=== PATIENT | male | born 1950 | race Caucasian/White ===

== ENCOUNTER 2019-12-31 08:23 | Outpatient (CLI) | payer BC, SELFPAY ==
[2019-12-31 09:06] LABS: Alanine Aminotransferase 21 U/L (4-50); Albumin Level 4.2 g/dL (3.5-5.1); Alkaline Phosphatase 66 U/L (38-126); Aspartate Amino Transferase 29 U/L (17-59); Bilirubin,Total 0.8 mg/dL (0.2-1.3); Blood Urea Nitrogen 15 mg/dL (9-20); Calcium 9.4 mg/dL (8.4-10.2); Carbon Dioxide 30 mmol/L (22-30); Chloride 104 mmol/L (98-107); Cholesterol 167 mg/dL (0-200); Estimated Glomerular Filt Rate > 60; Glucose 73 mg/dL (75-110); HDL Direct 64 mg/dL; Potassium 4.4 mmol/L (3.4-5.0); Sodium 139 mmol/L (137-145); Triglycerides 64 mg/dL (<150)
[2019-12-31 09:17] LABS: LDL Cholesterol Direct 87 mg/dL
== END 2019-12-31 08:24 | disposition home or self-care (01) ==
PROVIDERS: PCP Emergency Medicine; Visit Provider Emergency Medicine
DX: E78.5 Hyperlipidemia, unspecified (principal); Z12.5 Encounter for screening for malignant neoplasm of prostate
CPT/HCPCS: 36415; 80053; 80061; 84153

== ENCOUNTER 2020-03-29 07:58 | Outpatient (CLI) | payer BC, SELFPAY ==
[2020-03-29 08:51] LABS: Alanine Aminotransferase 23 U/L (4-50); Alkaline Phosphatase 66 U/L (38-126); Anion Gap 4 mmol/L (8-16); Aspartate Amino Transferase 30 U/L (17-59); Bilirubin,Total 0.8 mg/dL (0.2-1.3); Blood Urea Nitrogen 15 mg/dL (9-20); Calcium 9.2 mg/dL (8.4-10.2); Carbon Dioxide 29 mmol/L (22-30); Chloride 105 mmol/L (98-107); Estimated Glomerular Filt Rate > 60; Glucose 94 mg/dL (75-110); Potassium 4.3 mmol/L (3.4-5.0); Sodium 138 mmol/L (137-145)
[2020-03-29 09:22] LABS: Prostate Specific Antigen 0.8 ng/mL (< OR = 4.0)
== END 2020-03-29 07:59 | disposition home or self-care (01) ==
PROVIDERS: PCP Emergency Medicine; Visit Provider Emergency Medicine
DX: E78.5 Hyperlipidemia, unspecified (principal); Z12.5 Encounter for screening for malignant neoplasm of prostate
CPT/HCPCS: 36415; 80053; 84153

== ENCOUNTER 2020-07-17 14:47 | Emergency (ER) | payer BC, SELFPAY ==
--- NOTE | ~2020-07-17 | XR_ITS ---
EXAMINATION: XR hand RT min 3V DATE: 07/17/2020 15:21 INDICATION: Table saw incident with abrasion to the second and third distal phalanges TECHNIQUE: Posteroanterior, oblique and lateral views of the right hand were obtained. COMPARISON: None. FINDINGS: Irregular skin contour consistent with skin laceration is at the palmar/radial aspects of the right s econd and third distal phalanges. No associated fracture or cortical defects. Old healed fifth metaca rpal diaphyseal fracture. Polyarticular osteoarthritis, severe at the triscaphe, first carpal metacar pal and third metacarpophalangeal joints, moderate severity at the wrist, first and third metacarpoph alangeal, first interphalangeal and all of the interphalangeal joints with the exception of the fourt h and fifth distal interphalangeal joints and mild at the remaining interphalangeal, metacarpophalang eal joints and the midcarpal joint. Comment associated subchondral cystic changes at the distal pole of the scaphoid and at the base of the first metacarpal. IMPRESSION: 1. Lacerations at the second and third distal phalanges without underlying acute osseous abnormality. 2. 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 Reviewed, dictated and finalized at location A. GY CONSERVATION SPECIALIST IMPRESSION: 1. Lacerations at the second and third distal phalanges without underlying acut e osseous abnormality. 2. 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
[2020-07-17 14:49] VITALS: BP 113/91; PULSE 110; RESP 20; TEMP 36.3; O2SAT 100
--- NOTE | 2020-07-17 15:13 | ED.GENADULT ---
HPI - General Adult General Chief complaint: Wound/Laceration <Bernardo Wheeler PA-C - Last Filed: 07/17/20 16:19> Stated complaint: FINGER LAC <Bernardo Wheeler PA-C - Last Filed: 07/17/20 16:19> Time Seen by Provider: 07/17/20 15:06 <SHERRI Olivas Last Filed: 07/17/20 16:19> Source: patient <SHERRI Olivas Last Filed: 07/17/20 16:19> Mode of arrival: ambulatory <Bernardo Wheeler PA-C - Last Filed: 07/17/20 16:19> Limitations: no limitations <Bernardo Wheeler PA-C - Last Filed: 07/17/20 16:19> History of Present Illness HPI narrative: Patient 70-year-old male who presents to emergency department with table saw injuries to the second third and fourth phalanxes of the right hand palmar aspect distal phalanxes notes moderate aching pain worse with touch and activity denies radicular symptoms or paresthesias notes that his tetanus is up-to-date injury occurred just prior to arrival <Bernardo Wheeler PA-C - Last Filed: 07/17/20 16:19> Related Data Home medications: Home Medications Medication Instructions Recorded Confirmed biotin 800 mcg tablet 800 mcg PO DAILY 07/17/19 multivitamin 1 tablet PO DAILY 07/17/19 loratadine 10 mg tablet 10 mg PO .PRN tablet 01/16/20 <Bernardo Wheeler PA-C - Last Filed: 07/17/20 16:19> Allergies/adverse reactions: Allergies Allergy/AdvReac Type Severity Reaction Status Date / Time sulfamethoxazole Allergy Intermediate Rash Verified 07/17/20 14:51 <Bernardo Wheeler PA-C - Last Filed: 07/17/20 16:19> Review of Systems Review of Systems: All systems reviewed & are unremarkable except as noted in HPI and below <Bernardo Wheeler PA-C - Last Filed: 07/17/20 16:19> PMFSH Past Medical History Medical History: Medical History (Updated 07/17/20 @ 16:18 by Bernardo Wheeler PA-C) DJD (degenerative joint disease) GERD (gastroesophageal reflux disease) <Bernardo Wheeler PA-C - Last Filed: 07/17/20 16:19> Family History Family History: Family History Mother Family history of cardiovascular disease Family history of arthritis Father Family history of lung disease, Onset Age: 82 Family history of renal failure, Onset Age: 82 <SHERRI Olivas Last Filed: 07/17/20 16:19> Social History Social History: Social History Alcohol intake: current <Bernardo Wheeler PA-C - Last Filed: 07/17/20 16:19> Exam Narrative: Exam Narrative: GENERAL: Well-appearing, well-nourished, and in no acute distress. HEAD: Normocephalic, atraumatic. EYES: PERRLA and EOMI. ENT: Nares clear, no rhinorrhea or epistaxis. Mucous membranes moist. EXTREMITIES: Normal range of motion. No edema. SKIN: Warm, dry, no rash. Superficial 1 cm in diameter skin avulsion of the distal phalanx palmar aspect right second digit patient with half centimeter superficial skin avulsion of the distal phalanx of the ring finger palmar aspect patient with 2 cm flap laceration distal phalanx middle digit palmar aspect NEURO: No focal deficits. Alert and oriented x3. Neurovascularly intact PSYCH: Normal mood and affect. <SHERRI Olivas Last Filed: 07/17/20 16:19> Course Course Emergency Course: Patient had closure of the wound in the emergency department will follow with primary care felt appropriate for outpatient reevaluation. <Bernardo Wheeler PA-C - Last Filed: 07/17/20 16:19> Vital Signs Vital signs: Vital Signs Temperature 97.3 F L 07/17/20 14:49 Pulse Rate 110 H 07/17/20 14:49 Respiratory Rate 20 07/17/20 14:49 Blood Pressure 113/91 H 07/17/20 14:49 Pulse Oximetry 100 07/17/20 14:49 Temperature 97.3 F L 07/17/20 14:49 Pulse Rate 110 H 07/17/20 14:49 Respiratory Rate 20 07/17/20 14:49 Blood Pressure 113/91 H 07/17/20 14:49 Pulse Oximet
== END 2020-07-17 16:31 | disposition home or self-care (01) ==
PROVIDERS: Emergency Provider General Practice; PCP Emergency Medicine
DX: S61.210A Laceration without foreign body of right index finger without damage to nail, initial encounter (principal); S61.212A Laceration without foreign body of right middle finger without damage to nail, initial encounter; S61.204A Unspecified open wound of right ring finger without damage to nail, initial encounter; K21.9 Gastro-esophageal reflux disease without esophagitis; M19.041 Primary osteoarthritis, right hand; W31.2XXA Contact with powered woodworking and forming machines, initial encounter
CPT/HCPCS: 12001; 73130; 99283

== ENCOUNTER 2021-05-26 07:22 | Outpatient (CLI) | payer BC, SELFPAY ==
[2021-05-26 08:24] LABS: Alanine Aminotransferase 29 U/L (4-50); Albumin Level 4.4 g/dL (3.5-5.1); Alkaline Phosphatase 75 U/L (38-126); Anion Gap 4 mmol/L (8-16); Aspartate Amino Transferase 36 U/L (17-59); Bilirubin,Total 0.9 mg/dL (0.2-1.3); Blood Urea Nitrogen 16 mg/dL (9-20); Calcium 9.5 mg/dL (8.4-10.2); Carbon Dioxide 32 mmol/L (22-30); Chloride 105 mmol/L (98-107); Estimated Glomerular Filt Rate > 60; Glucose 93 mg/dL (65-110); Potassium 4.6 mmol/L (3.4-5.0); Sodium 141 mmol/L (137-145)
[2021-05-26 08:55] LABS: Prostate Specific Antigen 1.1 ng/mL (< OR = 4.0)
== END 2021-05-26 07:23 | disposition home or self-care (01) ==
PROVIDERS: PCP Emergency Medicine; Visit Provider Emergency Medicine
DX: Z13.6 Encounter for screening for cardiovascular disorders (principal); Z12.5 Encounter for screening for malignant neoplasm of prostate
CPT/HCPCS: 36415; 80053; 84153

== ENCOUNTER 2021-07-19 01:56 | Day surgery (SDC) | payer BC, SELFPAY ==
[2021-07-05 12:36] VITALS: BMI 21.3
--- NOTE | 2021-07-19 08:10 | P.PNAN_ITS ---
Anes - Initial Pre Proc Eval Procedure: Operation Date: 07/19/21 09:30 Proposed Procedures p Esophagogastroduodenoscopy - Mendez Freed MD Date/Time: 07/19/21 08:10 Surgeon: Mendez Freed MD Pre Op Diagnosis: GERD Patient Data Age: 71 Gender: M Height: 1.73 m Weight: 63.6 kg Allergies Allergy/AdvReac Type Severity Reaction Status Date / Time sulfamethoxazole Allergy Intermediate Rash Verified 07/19/21 08:28 Home Medications Medication Instructions Recorded Confirmed Type biotin 800 mcg tablet 800 mcg PO DAILY 07/17/19 07/19/21 History multivitamin 1 tablet PO DAILY 07/17/19 07/19/21 History epinephrine 0.3 mg/0.3 mL 0.3 mg IM ONCE #2 each 01/16/20 07/19/21 Rx injection, auto-injector loratadine 10 mg tablet 10 mg PO .PRN tablet 01/16/20 07/19/21 History bimatoprost 0.01 % eye drops 1 drp EACH EYE DAILY 12/28/20 07/19/21 History omeprazole 20 mg capsule,delayed See Rx Instructions .ROUTE 02/02/21 07/19/21 Rx release .COMPLEX #90 cap Patient hx anesthesia problems: none Family hx anesthesia problems: none Results Review: All pre-operative results and documents have been reviewed as part of the pre-operative evaluation. [facility] Past Medical History Medical History (Updated 07/19/21 @ 08:10 by Vicente Knight DO) DJD (degenerative joint disease) GERD (gastroesophageal reflux disease) Glaucoma Family History Family History Mother Family history of cardiovascular disease Family history of arthritis Father Family history of lung disease, Onset Age: 82 Family history of renal failure, Onset Age: 82 Social History Social History Smoking status: Current every day smoker Tobacco type: cigars Alcohol intake: current Drinks per week: 7 Living arrangements: alone Spiritual care concerns: No Anes - Eval Final PreProcedure Day of Procedure 07/19/21 08:10 Patient weight: normal Heart: regular rate and rhythm Lungs: clear to auscultation and normal air movement Airway: Mallampati scale class II Neurological: alert and oriented Last oral intake: >/= 8 hours ASA classification: III Emergent: no Anesthetic plan: proceed Anesthesia type and monitoring: general GIVS and standard monitoring Results Review: All pre-operative results and documents have been reviewed as part of the pre-operative evaluation. Informed Consent: The patient's anesthetic plan and its attendant risks and benefits were discussed with the patient/family/POA. Questions were solicited and answers provided to the satisfaction of the patient/family/POA.
[2021-07-19 08:29] VITALS: BP 123/68; PULSE 66; RESP 16; TEMP 36.3; O2SAT 100; BMI 18.8
[2021-07-19] MEDS: LACTATED RINGERS 1,000 ML 150 ML IV CONT (08:39)
--- NOTE | 2021-07-19 09:50 | PM.HPGS ---
History of Present Illness History of Present Illness Consent: Risks, benefits, and alternatives have been discussed and questions answered. Patient agrees to proceed with procedure. Chief complaint: GERD Narrative: Kenny Lee is a 71 year old male with abdominal pain and weight loss, gerd controlled with omeprazole. Last colonoscopy about 2 years ago. Review of Systems Constitutional: Constitutional: Denies headache(s) and Denies weakness Eyes: Eyes: Denies blurry vision ENT: Reports Normal hearing present, Denies headache(s) and Denies neck pain Cardiovascular: Cardiovascular: Denies chest pain and Denies dyspnea Respiratory: Respiratory: Denies dyspnea Gastrointestinal: Gastrointestinal: Reports no additional gastrointestinal complaints Genitourinary: Genitourinary: Denies dysuria Musculoskeletal: Musculoskeletal: Denies neck pain Integumentary/Breasts: Skin/Breast: Denies dry skin Neurologic: Reports Normal hearing present, Denies headache(s) and Denies weakness Psychiatric: Psychiatric: Denies anxiety Endocrine: Endocrine: Denies change in body appearance Hematologic/Lymphatic: Hematologic/Lymphatic: Denies easy bleeding Allergic/Immunologic: Allergic/Immunologic: Denies urticaria [facility]LY [facility] Past Medical History Medical History (Updated 07/19/21 @ 08:10 by Vicente Knight DO) DJD (degenerative joint disease) GERD (gastroesophageal reflux disease) Glaucoma Family History Family History Mother Family history of cardiovascular disease Family history of arthritis Father Family history of lung disease, Onset Age: 82 Family history of renal failure, Onset Age: 82 Social History Social History Smoking status: Current every day smoker Tobacco type: cigars Alcohol intake: current Drinks per week: 7 Living arrangements: alone Spiritual care concerns: No Meds Home Medications and Allergies Home Medications Medication Instructions Recorded Confirmed Type biotin 800 mcg tablet 800 mcg PO DAILY 07/17/19 07/19/21 History multivitamin 1 tablet PO DAILY 07/17/19 07/19/21 History epinephrine 0.3 mg/0.3 mL 0.3 mg IM ONCE #2 each 01/16/20 07/19/21 Rx injection, auto-injector loratadine 10 mg tablet 10 mg PO .PRN tablet 01/16/20 07/19/21 History bimatoprost 0.01 % eye drops 1 drp EACH EYE DAILY 12/28/20 07/19/21 History omeprazole 20 mg capsule,delayed See Rx Instructions .ROUTE 02/02/21 07/19/21 Rx release .COMPLEX #90 cap Allergies Allergy/AdvReac Type Severity Reaction Status Date / Time sulfamethoxazole Allergy Intermediate Rash Verified 07/19/21 08:28 Vital Signs Vital Signs - 24 hr 07/19/21 08:29 Temperature 97.4 F L Pulse Rate 66 Respiratory Rate 16 Blood Pressure 123/68 Pulse Oximetry 100 Exam Const: General: comfortable and no acute distress HENMT: General nose exam: Normal nares present Eyes: General: appearance normal, both eyes and all related structures Neck: Neck: no JVD Resp: Auscultation: clear to auscultation bilaterally Cardio: Rate: regular rate Rhythm: regular rhythm GI: Inspection: non-distended GI Palp: Yes Soft to palpation Skin: General skin exam: normal color Neuro: General: gait normal Speech: normal speech Extrem: General: normal to inspection Psych: Mental Status: mental status grossly normal Assessment and Plan Assessment and plan (1) GERD (gastroesophageal reflux disease): Qualifiers: Esophagitis presence: without esophagitis Qualified Code(s): K21.9 - Gastro-esophageal reflux disease without esophagitis Code(s): K21.9 - Gastro-esophageal reflux disease without esophagitis Status: Acute Assessment and Plan: egd with bx, on ppi (2) Weight decrease: Code(s): R63.4 - Abnormal weight loss Status: Acute Assessment and P
[2021-07-19 10:05] VITALS: BP 86/54; PULSE 54; RESP 21; O2SAT 99
[2021-07-19 10:15] VITALS: BP 103/68; PULSE 55; RESP 17; O2SAT 100
[2021-07-19 10:25] VITALS: BP 114/78; PULSE 66; RESP 17; O2SAT 100
== END 2021-07-19 10:39 | disposition home or self-care (01) ==
PROVIDERS: PCP Emergency Medicine; Visit Provider Internal Medicine Gastroenterology
PROC: 0DJ08ZZ Inspection of Upper Intestinal Tract, Via Natural or Artificial Opening Endoscopic (ICD-10-PCS; CPT 43235; principal; 2021-07-19 09:30)
DX: K21.9 Gastro-esophageal reflux disease without esophagitis (principal); R63.4 Abnormal weight loss; K29.50 Unspecified chronic gastritis without bleeding; H40.9 Unspecified glaucoma; F17.290 Nicotine dependence, other tobacco product, uncomplicated; Z68.1 Body mass index [BMI] 19.9 or less, adult
CPT/HCPCS: 43239; 88305; J2704; J7120

== ENCOUNTER 2021-07-28 09:34 | Outpatient (CLI) | payer BC, SELFPAY ==
--- NOTE | ~2021-07-28 | CT_ITS ---
EXAMINATION: CT abdomen pelvis w con INDICATION: Epigastric pain, abnormal weight loss TECHNIQUE: Computed tomographic images of the abdomen and pelvis were obtained after the administrati on of 100 cc of Omnipaque 350 intravenous contrast. The dose-length product (DLP) was 289.08 mGy-cm. Automated exposure control and iterative reconstruction technique were employed. COMPARISON: None available FINDINGS: Minimal dependent atelectasis is present in the lung bases. The heart size is normal. There is a 6 mm nodule of the left lower lobe. The gallbladder is surgically absent. There is mild enlarge ment of the common bile duct and central intrahepatic ducts which is likely due to post cholecystecto my state. The liver, spleen, pancreas, and adrenal glands are normal. The kidneys are unremarkable. N o pathologically enlarged abdominal or pelvic lymph nodes are identified. There is no free intraperit sheehan gas or evidence of bowel obstruction. A large volume of colonic stool is present. There is mode rate lumbar spondylosis. IMPRESSION: 1. No CT correlate for the patient's symptoms. 2. 6 mm nodule of the left lower lobe, likely old granulomatous disease. Follow-up CT in 6-12 months is recommended. Reviewed, dictated and finalized at location A. ITAL RECEIVING CLERK IMPRESSION: 1. No CT correlate for the patient's symptoms. 2. 6 mm nodule of the left lower lobe, likely old granulomatous disease. Follow -up CT in 6-12 months is recommended.
[2021-07-28 10:01] LABS: Estimated Glomerular Filt Rate > 60
== END 2021-07-28 09:35 | disposition home or self-care (01) ==
LOC: ANHIMG 09:36
PROVIDERS: PCP Emergency Medicine; Visit Provider Internal Medicine Gastroenterology
DX: R63.4 Abnormal weight loss (principal); R10.9 Unspecified abdominal pain; R91.1 Solitary pulmonary nodule
CPT/HCPCS: 74177; Q9967

== ENCOUNTER 2021-12-12 07:26 | Outpatient (CLI) | payer BC, SELFPAY ==
[2021-12-12 08:00] LABS: Alanine Aminotransferase 20 U/L (4-50); Albumin Level 4.2 g/dL (3.5-5.1); Alkaline Phosphatase 67 U/L (38-126); Anion Gap 5 mmol/L (8-16); Aspartate Amino Transferase 30 U/L (17-59); Bilirubin,Total 0.9 mg/dL (0.2-1.3); Blood Urea Nitrogen 14 mg/dL (9-20); Calcium 9.1 mg/dL (8.4-10.2); Carbon Dioxide 28 mmol/L (22-30); Chloride 104 mmol/L (98-107); Estimated Glomerular Filt Rate > 60; Glucose 102 mg/dL (65-110); Potassium 3.9 mmol/L (3.4-5.0); Sodium 137 mmol/L (137-145)
== END 2021-12-12 07:27 | disposition home or self-care (01) ==
LOC: ANHLAB 07:27
PROVIDERS: PCP Emergency Medicine; Visit Provider Emergency Medicine
DX: Z13.6 Encounter for screening for cardiovascular disorders (principal)
CPT/HCPCS: 36415; 80053

== ENCOUNTER 2022-01-23 08:37 | Outpatient (CLI) | payer BC, SELFPAY ==
--- NOTE | ~2022-01-23 | CT_ITS ---
EXAMINATION: CT diagnostic chest wo con DATE: 01/23/2022 09:06 INDICATION: 6 mm left lower lobe pulmonary nodule noted on 07/28/2021 CT abdomen pelvis examination TECHNIQUE: Computed tomography (CT) of the chest was performed without intravenous contrast. Automate d exposure control and iterative reconstruction technique were employed. Exam dose: 75.05 mGy-cm tot al exam DLP. COMPARISON: 07/28/2021 CT abdomen pelvis FINDINGS: Bilateral apical scarring, right greater than left. Stable 6 mm pleural-based left lower lobe pulmonary nodule with attenuation up to 150 Hounsfield unit s, most consistent with benign calcified pulmonary granuloma. This is unchanged in size since 021. No pulmonary infiltrate or consolidation or pulmonary mass lesion is noted otherwise. Normal heart size. No hilar or mediastinal mass lesion or lymphadenopathy. There is left subclavian artery as well as some coronary artery calcifications. No pericardial or pleural effusion. No suspicious osteolytic or osteoblastic lesions are noted. IMPRESSION: Stable benign left lower lobe pulmonary granuloma with interval calcification No active pulmonary disease Reviewed, dictated and finalized at Location A. Reviewed, dictated and finalized at location A. IMPRESSION: Stable benign left lower lobe pulmonary granuloma with interval ca lcification No active pulmonary disease
== END 2022-01-23 08:38 | disposition home or self-care (01) ==
LOC: ANHIMG 08:40
PROVIDERS: PCP Emergency Medicine; Visit Provider Nurse Practitioner Family
DX: R91.1 Solitary pulmonary nodule (principal)
CPT/HCPCS: 71250

== ENCOUNTER 2022-06-19 09:12 | Outpatient (CLI) | payer BC, SELFPAY ==
[2022-06-19 10:07] LABS: Alanine Aminotransferase 28 U/L (6-50); Albumin Level 4.5 g/dL (3.5-5.1); Alkaline Phosphatase 79 U/L (38-126); Anion Gap 8 mmol/L (8-16); Aspartate Amino Transferase 32 U/L (17-59); Bilirubin,Total 0.9 mg/dL (0.2-1.3); Blood Urea Nitrogen 14 mg/dL (9-20); Calcium 9.2 mg/dL (8.4-10.2); Carbon Dioxide 29 mmol/L (22-30); Chloride 102 mmol/L (98-107); Estimated Glomerular Filt Rate > 60; Glucose 90 mg/dL (65-110); Potassium 4.2 mmol/L (3.4-5.0); Sodium 139 mmol/L (137-145)
[2022-06-19 10:38] LABS: Prostate Specific Antigen 1.1 ng/mL (< OR = 4.0)
== END 2022-06-19 09:13 | disposition home or self-care (01) ==
LOC: ANHLAB 09:14
PROVIDERS: PCP Emergency Medicine; Visit Provider Emergency Medicine
DX: Z12.5 Encounter for screening for malignant neoplasm of prostate (principal); Z13.6 Encounter for screening for cardiovascular disorders
CPT/HCPCS: 36415; 80053; 84153; G0103

== ENCOUNTER 2022-12-28 08:09 | Outpatient (CLI) | payer BC, SELFPAY ==
[2022-12-28 09:16] LABS: Alanine Aminotransferase 29 U/L (6-50); Albumin Level 3.8 g/dL (3.5-5.1); Alkaline Phosphatase 69 U/L (38-126); Anion Gap 5 mmol/L (8-16); Aspartate Amino Transferase 34 U/L (17-59); Bilirubin,Total 1.1 mg/dL (0.2-1.3); Blood Urea Nitrogen 12 mg/dL (9-20); Calcium 8.7 mg/dL (8.4-10.2); Carbon Dioxide 26 mmol/L (22-30); Chloride 105 mmol/L (98-107); Estimated Glomerular Filt Rate > 60; Glucose 108 mg/dL (65-110); Sodium 136 mmol/L (137-145)
[2023-01-01 22:12] LABS: Vitamin D 1,25 (OH)2 Total 36 pg/mL (18-72); Vitamin D2 1,25 (OH)2 <8 pg/mL; Vitamin D3 1,25 (OH)2 36 pg/mL
== END 2022-12-28 08:10 | disposition home or self-care (01) ==
PROVIDERS: PCP Emergency Medicine; Visit Provider Emergency Medicine
DX: R53.83 Other fatigue (principal); K21.9 Gastro-esophageal reflux disease without esophagitis
CPT/HCPCS: 36415; 80053; 82652

== ENCOUNTER 2023-01-12 10:27 | Outpatient (CLI) | payer BC, SELFPAY ==
[2023-01-18 18:56] LABS: Testosterone Total 732 ng/dL (250-1100)
== END 2023-01-12 10:28 | disposition home or self-care (01) ==
PROVIDERS: PCP Emergency Medicine; Visit Provider Emergency Medicine
DX: R79.89 Other specified abnormal findings of blood chemistry (principal)
CPT/HCPCS: 36415; 84402; 84403

== ENCOUNTER 2023-02-19 09:19 | Outpatient (CLI) | payer BC, SELFPAY ==
--- NOTE | ~2023-02-19 | CT_ITS ---
CT Scan of the Chest without Contrast: Clinical Indication: Lung cancer screening, personal history of nicotine dependence Technique: Contiguous sections were acquired throughout the chest without intravenous contrast. Dose reduction technique was used on this scan by utilizing automated exposure control and iterative recon struction technique. The dose-length product (DLP) was 168.85 mGy-cm. COMPARISON: 01/23/2022 and 08/07/2021 Findings: There is no evidence of any significant mediastinal, hilar or axillary lymphadenopathy. The mediastin al soft tissues appear normal. There is no evidence of pleural or pericardial effusion. Stable 6 mm pleural-based nodule at the left lung base. Images through the upper abdomen reveal no abnormalities. Impression: Lung RADS 2: Benign appearance. 12 month follow-up screening CT advised. Reviewed, dictated and finalized at location . Impression: Lung RADS 2: Benign appearance. 12 month follow-up screening CT advised.
== END 2023-02-19 09:20 | disposition home or self-care (01) ==
PROVIDERS: PCP Emergency Medicine; Visit Provider Emergency Medicine
DX: Z12.2 Encounter for screening for malignant neoplasm of respiratory organs (principal); Z87.891 Personal history of nicotine dependence
CPT/HCPCS: 71271

== ENCOUNTER 2023-07-02 08:31 | Outpatient (CLI) | payer BC, SELFPAY ==
[2023-07-02 09:01] LABS: Alanine Aminotransferase 26 U/L (6-50); Albumin Level 4.2 g/dL (3.5-5.1); Alkaline Phosphatase 72 U/L (38-126); Anion Gap 7 mmol/L (8-16); Aspartate Amino Transferase 32 U/L (17-59); Bilirubin,Total 0.9 mg/dL (0.2-1.3); Blood Urea Nitrogen 12 mg/dL (9-20); Calcium 9.4 mg/dL (8.4-10.2); Carbon Dioxide 29 mmol/L (22-30); Chloride 103 mmol/L (98-107); Estimated Glomerular Filt Rate > 60; Glucose 127 mg/dL (65-110); Potassium 4.5 mmol/L (3.4-5.0); Sodium 139 mmol/L (137-145)
[2023-07-05 11:30] LABS: Vitamin D 1,25 (OH)2 Total 47 pg/mL (18-72); Vitamin D2 1,25 (OH)2 <8 pg/mL; Vitamin D3 1,25 (OH)2 47 pg/mL
== END 2023-07-02 08:32 | disposition home or self-care (01) ==
PROVIDERS: PCP Emergency Medicine; Visit Provider Emergency Medicine
DX: E78.5 Hyperlipidemia, unspecified (principal); E55.9 Vitamin D deficiency, unspecified
CPT/HCPCS: 36415; 80053; 82652

== ENCOUNTER 2024-01-08 10:42 | Outpatient (CLI) | payer BC, SELFPAY ==
[2024-01-08 12:02] LABS: Alanine Aminotransferase 23 U/L (6-50); Albumin Level 4.1 g/dL (3.5-5.1); Alkaline Phosphatase 75 U/L (38-126); Anion Gap 3 mmol/L (4-12); Aspartate Amino Transferase 31 U/L (17-59); Bilirubin,Total 0.8 mg/dL (0.2-1.3); Blood Urea Nitrogen 15 mg/dL (9-20); Calcium 9.3 mg/dL (8.4-10.2); Carbon Dioxide 30 mmol/L (22-30); Chloride 105 mmol/L (98-107); Estimated Glomerular Filt Rate > 60; Glucose 98 mg/dL (65-110); Potassium 4.5 mmol/L (3.4-5.0); Sodium 138 mmol/L (137-145)
[2024-01-08 12:42] LABS: Prostate Specific Antigen 1.2 ng/mL (< OR = 4.0)
[2024-01-08 12:59] LABS: Vitamin D 25 Hydroxy 62.4 ng/mL
== END 2024-01-08 10:43 | disposition home or self-care (01) ==
PROVIDERS: PCP Emergency Medicine; Visit Provider Emergency Medicine
DX: Z12.5 Encounter for screening for malignant neoplasm of prostate (principal); E55.9 Vitamin D deficiency, unspecified; K21.9 Gastro-esophageal reflux disease without esophagitis
CPT/HCPCS: 36415; 80053; 82306; 84153; G0103

== ENCOUNTER 2024-02-27 10:02 | Outpatient (CLI) | payer BC, SELFPAY ==
--- NOTE | ~2024-02-27 | CT_ITS ---
CT Scan of the Chest without Contrast: Clinical Indication: Lung cancer screening, nicotine dependence Technique: Contiguous sections were acquired throughout the chest without intravenous contrast. Dose reduction technique was used on this scan by utilizing automated exposure control and iterative recon struction technique. The dose-length product (DLP) was 79.29 mGy-cm. COMPARISON: 02/19/2023 Findings: There is no evidence of any significant mediastinal, hilar or axillary lymphadenopathy. The mediastin al soft tissues appear normal. There is no evidence of pleural or pericardial effusion. Stable 6 mm left lower lobe pulmonary nodule. Images through the upper abdomen reveal no abnormalities. Impression: Lung RADS 2: Benign appearance. 12 month follow-up screening CT advised. Reviewed, dictated and finalized at location . Impression: Lung RADS 2: Benign appearance. 12 month follow-up screening CT advised.
== END 2024-02-27 10:03 | disposition home or self-care (01) ==
PROVIDERS: PCP Emergency Medicine; Visit Provider Emergency Medicine
DX: Z12.2 Encounter for screening for malignant neoplasm of respiratory organs (principal); J84.10 Pulmonary fibrosis, unspecified; Z87.891 Personal history of nicotine dependence
CPT/HCPCS: 71271

== ENCOUNTER 2024-07-16 11:22 | Outpatient (CLI) | payer BC, SELFPAY ==
[2024-07-16 12:21] LABS: Alanine Aminotransferase 23 U/L (6-50); Albumin Level 4.3 g/dL (3.5-5.1); Alkaline Phosphatase 71 U/L (38-126); Anion Gap 4 mmol/L (4-12); Aspartate Amino Transferase 31 U/L (17-59); Bilirubin,Total 1.1 mg/dL (0.2-1.3); Blood Urea Nitrogen 14 mg/dL (9-20); Calcium 9.3 mg/dL (8.4-10.2); Carbon Dioxide 29 mmol/L (22-30); Chloride 104 mmol/L (98-107); Estimated Glomerular Filt Rate > 60; Glucose 108 mg/dL (65-110); Potassium 4.5 mmol/L (3.4-5.0); Sodium 137 mmol/L (137-145)
[2024-07-16 12:43] LABS: Vitamin D 25 Hydroxy 61.6 ng/mL
== END 2024-07-16 11:23 | disposition home or self-care (01) ==
PROVIDERS: PCP Emergency Medicine; Visit Provider Emergency Medicine
DX: E55.9 Vitamin D deficiency, unspecified (principal); E78.5 Hyperlipidemia, unspecified
CPT/HCPCS: 36415; 80053; 82306

== ENCOUNTER 2025-01-15 11:41 | Outpatient (CLI) | payer MEDICARE, BC, SELFPAY ==
[2025-01-15 12:29] LABS: Alanine Aminotransferase 21 U/L (6-50); Albumin Level 4.3 g/dL (3.5-5.1); Alkaline Phosphatase 70 U/L (38-126); Anion Gap 4 mmol/L (4-12); Aspartate Amino Transferase 31 U/L (17-59); Bilirubin,Total 0.8 mg/dL (0.2-1.3); Blood Urea Nitrogen 15 mg/dL (9-20); Calcium 9.5 mg/dL (8.4-10.2); Carbon Dioxide 30 mmol/L (22-30); Chloride 104 mmol/L (98-107); Estimated Glomerular Filt Rate > 60; Glucose 81 mg/dL (65-110); Potassium 4.5 mmol/L (3.4-5.0); Sodium 138 mmol/L (137-145); Total Protein 6.8 g/dL (6.3-8.2)
--- OUTSIDE RECORDS SUMMARY | 2025-01-15 12:41 | XMS_ITS | Clinical Summary ---
Author Organization [facility] Address [address], [facility] [address] [place] [address] Phone Care Team Providers Care Production Material Handler Name Role Phone Percy Contreras MD Primary Care Provider [phone] Allergies No known active allergies Medications polyethylene glycol (MIRALAX) Powder Use entire 255g bottle with 64oz of clear liquid as directed for colonoscopy prep. 255 g 7 Active Aspirin 81 MG Tablet Take 81 mg by mouth daily. Active Multiple Vitamin (MULTI-DAY VITAMINS PO) Take 1 Tab by mouth daily. Active Biotin 5000 MCG Tablet Take 1 Tab by mouth daily. Active omeprazole (PRILOSEC) 40 MG CAPSULE DELAYED RELEASE Take 40 mg by mouth daily. Active Family History Medical History Relation Name Comments Kidney Cancer Father Breast Cancer Mother Relation Name Status Comments Father Mother Social History Tobacco Use Types Packs/Day Years Used Date Smoking Tobacco: Every Day Cigarettes 1 20 Smokeless Tobacco: Never Alcohol Use Standard Drinks/Week Comments Yes 2 (1 standard drink = 0.6 oz pur e alcohol) Sex and Gender Information Value Date Recorded Sex Assigned at Not on file Legal Sex Male 8:01 PM CDT Gender Identity Not on file Sexual Orientation Not on file Plan of Treatment Health Maintenance Due Date Last Done Comments Hepatitis C Virus (HCV) Screening 1950 TdaP Immunization 1950 Cologuard 2001 Immunochemical Fecal Occult Blood 2001 Pneumococcal Immunization (5 0+ years) (1 of 1 - PCV) 2001 Zoster Immunization (1 of 2) 2001 Influenza Immunization (#1) 2024 SARS-COV-2 Immunization (2023- season) 2024 Respiratory Syncytial Virus (RSV) Immunization (Adult) (1 - 1-dose 75+ series) 2026 Colonoscopy 07/19/2027 07/19/2017 Colorectal Cancer Screening 07/19/2027 07/19/2017 Hepatitis B Immunization Aged Out No longer eligible based on patient's age to complete this topic Meningococcal Immunization (ACWY) Aged Out No longer eligible based on patient's age to complete this topic Rotavirus Immunization Aged Out No lo nger eligible based on patient's age to complete this topic Procedures Procedure Name Priority Date/Time Associated Diagnosis Comments COLONOSCOPY Routine 07/19/2017 from Last 3 Months or Most Recently Relevant to Health Maintenance Results * COLONOSCOPY (07/19/2017) Leonidas Valentine DO PROCEDURE/MINOR SURGICAL ORDERA BLES Final Result from Last 3 Months or Most Recently Relevant to Health Maintenance Insurance [facility] Care Teams Production Material Handler Relationship Specialty Start Date End Date Percy Contreras MD [address] [place] [address] PCP - General Internal Medicine 07/25/17
--- OUTSIDE RECORDS SUMMARY | 2025-01-15 12:41 | XMS_ITS | Encounter Summary ---
Author Organization [facility] Address [address] [place] [address] Care Team Providers Care Concrete Smoother Name Role Phone Unavailable Primary Care Provider Unavailabl e Encounter Details Date Type Department Care Team (Late st Contact Info) Description 11/21/2002 Outpatient Historical [facility] Internal Medicine [address] [place] [address] Grant Kirkland MD [address] [facility] [address] [place] [address] Social History Tobacco Use Types Packs/Day Years Used Date Smoking Tobacco: Never Assessed Sex and Gender Information Value Date Recorded Sex Assigned at Not on file Legal Sex Male 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
--- OUTSIDE RECORDS SUMMARY | 2025-01-15 12:41 | XMS_ITS | Clinical Summary ---
Author Organization [facility] Address [address] [facility] Attn: Epic Prelude ADT [place] [address] Care Team Providers Care Clinical Advisor Name Role Phone Unavailable Primary Care Provider Unavailabl e Social History Tobacco Use Types Packs/Day Years Used Date Smoking Tobacco: Never Assessed Sex and Gender Information Value Date Recorded Sex Assigned at Not on file Legal Sex Male 2:43 AM PATTERNMAKER SAMPLE Gender Identity Not on file Sexual Orientation Not on file Plan of Treatment Health Maintenance Due Date Last Done Comments DTAP/TDAP/TD VACCINES (1 - Tdap) 1970 COLORECTAL SCREENING 1996 Colorectal Cancer Screening 1996 FIT-DNA Q 3 years 1996 FIT/FOBT Q 1 year 1996 Flex Sig/CT Colonography Q 5 years 1996 PNEUMOCOCCAL VACCINE 50+ YEARS (1 of 1 - PCV) 03/23/20 ZOSTER VACCINE (1 of 2) 2001 INFLUENZA VACCINE (#1) 2024 RSV VACCINE (60+ or ) (1 - 1-dose 75+ series) 2026
[2025-01-15 13:33] LABS: Vitamin D 25 Hydroxy 55.6 ng/mL
== END 2025-01-15 11:42 | disposition home or self-care (01) ==
LOC: ANHLAB 11:46
PROVIDERS: PCP Emergency Medicine; Visit Provider Emergency Medicine
DX: E78.5 Hyperlipidemia, unspecified (principal); E55.9 Vitamin D deficiency, unspecified
CPT/HCPCS: 36415; 80053; 82306

== ENCOUNTER 2025-02-27 10:09 | Outpatient (CLI) | payer MEDICARE, BC, SELFPAY ==
--- NOTE | ~2025-02-27 | CT_ITS ---
CT Scan of the Chest without Contrast: Clinical Indication: Lung cancer screening, nicotine dependence Technique: Contiguous sections were acquired throughout the chest without intravenous contrast. Dose reduction technique was used on this scan by utilizing automated exposure control and iterative recon struction technique. The dose-length product (DLP) was 69.02 mGy-cm. COMPARISON: 02/27/2024 Findings: There is no evidence of any significant mediastinal, hilar or axillary lymphadenopathy. The mediastin al soft tissues appear normal. There is no evidence of pleural or pericardial effusion. Stable 6 mm left lower lobe pulmonary nodule. Images through the upper abdomen reveal no abnormalities. Impression: Lung RADS 2: Benign appearance. 12 month follow-up screening CT advised. Reviewed, dictated and finalized at location . Impression: Lung RADS 2: Benign appearance. 12 month follow-up screening CT advised.
--- OUTSIDE RECORDS SUMMARY | 2025-02-27 10:14 | XMS_ITS | Encounter Summary ---
Author Organization [facility] Address [address] [place] [address] Care Team Providers Care Inbound Ingredient Logistics Specialist Name Role Phone Unavailable Primary Care Provider Unavailabl e Encounter Details Date Type Department Care Team (Late st Contact Info) Description 11/21/2002 Outpatient Historical [facility] Internal Medicine [address] [place] [address] Grant Kirkland MD [address] [facility] [address] [place] [address] Social History Tobacco Use Types Packs/Day Years Used Date Smoking Tobacco: Never Assessed Sex and Gender Information Value Date Recorded Sex Assigned at Not on file 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
--- OUTSIDE RECORDS SUMMARY | 2025-02-27 10:14 | XMS_ITS | Clinical Summary ---
Author Organization [facility] Address [address], [address] [place] [address] Phone Care Team Providers Care Power House Control Room Operator Name Role Phone Percy Contreras MD Primary Care Provider [phone] Allergies No known active allergies Medications polyethylene [...] Colonoscopy 07/19/2027 07/19/2017 Colorectal Cancer Screening 07/19/2027 Hepatitis B Immunization Aged Out No longer [...] Most Recently Relevant to Health Maintenance Insurance [facility] Care Teams Power House Control Room Operator Relationship Specialty Start Date End Date Percy Contreras MD [address] [place] [address] PCP - General Internal Medicine 07/25/17
--- OUTSIDE RECORDS SUMMARY | 2025-02-27 10:14 | XMS_ITS | Clinical Summary ---
Author Organization [facility] Address [address] [facility] Attn: Epic Prelude ADT [place] [address] Care Team Providers Care Director Of Programming Name Role Phone Unavailable Primary Care Provider Unavailabl e Social History Tobacco Use Types Packs/Day Years Used Date Smoking Tobacco: Never Assessed Sex and Gender Information Value Date Recorded Sex Assigned at Not on file Legal Sex Male 2:43 AM DENTAL CLAIMS PROCESSOR Gender Identity Not on file Sexual Orientation [...] (1 of 2) 2001 INFLUENZA VACCINE (#1) 2025 RSV VACCINE (60+ or ) (1 - 1-dose 75+ series) 2026
== END 2025-02-27 10:10 | disposition home or self-care (01) ==
PROVIDERS: PCP Emergency Medicine; Visit Provider Emergency Medicine
DX: Z12.2 Encounter for screening for malignant neoplasm of respiratory organs (principal); Z87.891 Personal history of nicotine dependence
CPT/HCPCS: 71271

== ENCOUNTER 2025-07-15 13:33 | Emergency (ER) | payer MEDICARE, BC, SELFPAY ==
--- NOTE | 2025-07-15 13:33 | ED.URI ---
HPI - URI/Sore Throat General Chief Complaint: Upper Respiratory Infection Stated Complaint: SINUS/TICKLE IN CHEST/CONGESTION Time Seen by Provider: 07/15/25 13:33 Source: patient Mode of arrival: ambulatory Limitations: no limitations History of Present Illness HPI Narrative: Kenny is a 75 year old male patient presenting to the clinic today with c/o sinus and chest congestion for over 1 week. Reports blowing out dark yellow phlegm and coughing up yellow phlegm. No fevers, chills, body aches. Denies any shortness of breath or chest pain. States he was taking care of his granddaughter and she was sick with a cold prior to his symptoms. Has not taken any medications to treat his symptoms. Related Data Home Medications ?Medication ?Instructions ?Recorded ?Confirmed ?Last Taken ?Type multivitamin (Daily Multi-Vitamin 1 tablet PO DAILY 07/17/19 07/15/25 Unknown History tablet) loratadine 10 mg tablet (Claritin) 10 mg PO .PRN 01/16/20 07/15/25 Unknown History brimonidine 0.2 %-timolol 0.5 % 1 drp EACH EYE BID 01/12/23 07/15/25 Unknown History eye drops Allergies Allergy/AdvReac Type Severity Reaction Status Date / Time sulfamethoxazole Allergy Intermediate Rash Verified 07/15/25 13:39 Review of Systems Review of Systems: Pertinent positives per HPI. Patient denies any fever, chills, rash, visual changes, dizziness, shortness of breath, chest pain, palpitations, nausea, vomiting, diarrhea, constipation, abdominal pain, or any urinary issues. PENDING SALE TO [facility] Past Medical History Medical History Wasp sting Inguinal hernia with obstruction without gangrene Insect bite of arm, right Fatigue Acute pansinusitis, unspecified Vitamin D deficiency Skin lesion of face Restless legs syndrome Primary generalized (osteo)arthritis Hiatal hernia Gastro-esophageal reflux disease without esophagitis Cortical age-related cataract of both eyes Cellulitis of right upper extremity Sinusitis Abdominal pain Glaucoma Rash Sinusitis chronic, frontal Cellulitis and abscess of finger, unspecified Suture check Suture line intact DJD (degenerative joint disease) GERD (gastroesophageal reflux disease) Surgical History Surgical History H/O cataract extraction Family History Family History Mother Family history of cardiovascular disease Family history of arthritis Father Family history of lung disease, Onset Age: 82 Family history of renal failure, Onset Age: 82 Social History Social History Smoking status: Light tobacco smoker (1 cigar, does not inhale) Tobacco type: cigars Additional smoking assessment comments: Former cig smoker, quit 25+ years ago; 10 pack year; 1 cigar/day Alcohol intake: current Drinks per week: 7 Substance use: never Substance use type: does not use Lack of Transportation: No Lack of Food: Never True Current Housing: I Have Housing Concerned About Future Housing: No Difficulty Paying Gas/Electric Bills: No Difficulty Paying for Meds: No Currently Unemployed: No Education: Decline to Answer Difficulty w/ Childcare or Family Care: No Living arrangements: alone Spiritual care concerns: No Comments At the time of my signature, I reviewed and agree with the nursing past medical, surgical, social, and family history. There is no relevant family history pertinent to the patient complaint. Exam Narrative: General: Well-developed, well nourished, in no apparent distress Head: Normocephalic, atraumatic Eyes: Pupils equally round and reactive to light bilaterally, EOM intact, sclera and conjunctive clear, no discharge, lids normal Ears: TMs intact and clear, ear canals clear, no drainage, grossly hearing normal. Nose: Nares patent, yellow nasal discharge, moderate inflammation, maxillary sinus tenderness. Mouth: Oral pharynx red without lesions or masses, good dentition, MMM. Postnasal drip Neck: Supple, trachea midline, no enlargement of anterior or posterior cervical nodes, no thyroid masses or goiter palpable. Cardio: Regular rate and rhythm, s1 and s2 normal, no murmur appreciated. Resp: Clear to auscultation bilaterally, no rhonchi, rales, wheezing or rubs Course Course Level of Care: Express Care Visit Vital Signs Vital signs: Vital Signs Temperature 36.4 C 07/15/25 13:46 Pulse Rate 98 07/15/25 13:46 Respiratory Rate 16 07/15/25 13:46 Blood Pressure 135/86 07/15/25 13:46 Pulse Oximetry 99 07/15/25 13:46 Temperature 36.4 C 07/15/25 13:46 Pulse Rate 98 07/15/25 13:46 Respiratory Rate 16 07/15/25 13:46 Blood Pressure 135/86 07/15/25 13:46 Pulse Oximetry 99 07/15/25 13:46 MDM MDM Narrative Medical decision making narrative: At the time of visit patient is resting comfortably on the exam table. Patient appears to be nontoxic. C/o sinus and chest congestion for over 1 week. Reports blowing out dark yellow phlegm and coughing up yellow phlegm. No fevers, chills, body aches. Denies any shortness of breath or chest pain. States he was taking care of his granddaughter and she was sick with a cold prior to his symptoms. Has not taken any medications to treat his symptoms. On exam patient has mild TMs intact and clear, yellow nasal drainage with moderate anterior turbinate inflammation, maxillary sinus tenderness, oral pharynx mildly red with postnasal drip, no cervical lymphadenopathy, rates regular rate and rhythm, lung sounds are clear. Plan: I suspect patient has acute rhino sinusitis. Prescription for Augmentin and prednisone was sent to the pharmacy. Supportive measures were discussed with the patient and they voiced understanding discharge instructions and agrees to treatment plan. Return precautions reviewed Differential Diagnosis Differential Diagnosis: URI, pneumonia, bronchitis, COVID, influenza, sinusitis Discharge Plan Discharge Clinical Impression: Acute rhinosinusitis Patient Disposition: Home Condition: Stable Instructions: Antibiotic Form, Sinusitis (ED) Additional Instructions: COVID testing was negative in the clinic today. Take prescription medications only as prescribed-prednisone and Augmentin Increase fluids and stay well hydrated May take Tylenol or motrin as directed on bottle for pain/fever May use Flonase 1 spray in each nare daily May take OTC antihistamines such as Zyrtec or Claritin daily as directed on bottle May apply Vicks vapor rub to chest to open sinuses Sinus rinses for congestion Cepacol spray, cough drops, throat lozenges, warm tea with honey/lemon, gargle salt water to soothe throat BRAT diet for diarrhea Clear liquids x 24 hours then advance as tolerated for nausea/vomiting Go to the ED if you develop a worsening in your condition- high fever not controlled by Tylenol or Motrin, dehydration, weakness, lethargy, shortness of breath, or chest pain. Follow up with your PCP in 3-5 days if symptoms persist. Patient Language: Khmer Prescriptions: New amoxicillin-pot clavulanate 875-125 mg tablet 1 tablet PO Q12H 10 Days Qty: 20 0RF prednisone 20 mg tablet 40 mg PO DAILY 5 Days Qty: 10 0RF No Action loratadine [Claritin] 10 mg tablet 10 mg PO .PRN epinephrine [EpiPen 2-Kye] 0.3 mg/0.3 mL auto-injector 0.3 mg IM ONCE Qty: 2 12RF sildenafil [Viagra] 50 mg tablet 50 mg PO DAILY PRN (Reason: sexual activity) Qty: 5 2RF Rx Instructions: administer 30 minutes to 4 hours before activity multivitamin [Daily Multi-Vitamin] Tablet 1 tablet PO DAILY brimonidine-timolol 0.2-0.5 % drops 1 drp EACH EYE BID donepezil [Aricept] 10 mg tablet 10 mg PO DAILY Qty: 90 2RF linaclotide 72 mcg capsule 72 mcg PO DAILY Qty: 90 2RF temazepam 7.5 mg capsule 7.5 mg PO QHS Qty: 30 2RF memantine 5 mg tablet See Rx Instructions .ROUTE .COMPLEX Qty: 180 2RF Dose Instruction: TAKE 1 TABLET BY MOUTH TWICE A DAY Rx Instructions: TAKE 1 TABLET BY MOUTH TWICE A DAY omeprazole 20 mg capsule,delayed release(DR/EC) See Rx Instructions .ROUTE .COMPLEX Qty: 180 2RF Dose Instruction: TAKE 2 CAPSULES BY MOUTH DAILY Rx Instructions: TAKE 2 CAPSULES BY MOUTH DAILY Follow-up/Referrals: Percy Contreras MD [Primary Care Provider, Internal Medicine] Time of Disposition: 13:48 Quality NIHSS Nursing Documentation ED NIHSS nursing documentation: reviewed/agree
[2025-07-15 13:46] VITALS: BP 135/86; PULSE 98; RESP 16; TEMP 36.4; O2SAT 99
[2025-07-15 14:04] LABS: EDCOVIDSCREEN Negative (Negative)
== END 2025-07-15 14:02 | disposition home or self-care (01) ==
PROVIDERS: Emergency Provider Nurse Practitioner Family; PCP Emergency Medicine
DX: J01.90 Acute sinusitis, unspecified (principal); Z20.822 Contact with and (suspected) exposure to COVID-19; Z87.891 Personal history of nicotine dependence; K21.9 Gastro-esophageal reflux disease without esophagitis; H40.9 Unspecified glaucoma; M19.90 Unspecified osteoarthritis, unspecified site; G25.81 Restless legs syndrome
CPT/HCPCS: 87426; 99213; G0463

== ENCOUNTER 2025-07-20 08:27 | Outpatient (CLI) | payer MEDICARE, BC, SELFPAY ==
[2025-07-20 09:08] LABS: Alanine Aminotransferase 30 U/L (6-50); Albumin Level 4.1 g/dL (3.5-5.1); Alkaline Phosphatase 74 U/L (38-126); Anion Gap 4 mmol/L (4-12); Aspartate Amino Transferase 39 U/L (17-59); Bilirubin,Total 0.8 mg/dL (0.2-1.3); Blood Urea Nitrogen 14 mg/dL (9-20); Calcium 9.6 mg/dL (8.4-10.2); Carbon Dioxide 30 mmol/L (22-30); Chloride 103 mmol/L (98-107); Estimated Glomerular Filt Rate > 60; Glucose 109 mg/dL (65-110); Potassium 3.9 mmol/L (3.4-5.0); Sodium 137 mmol/L (137-145); Total Protein 6.8 g/dL (6.3-8.2)
[2025-07-20 09:45] LABS: Prostate Specific Antigen 1.3 ng/mL (< OR = 4.0)
== END 2025-07-20 08:28 | disposition home or self-care (01) ==
PROVIDERS: PCP Emergency Medicine; Visit Provider Emergency Medicine
DX: Z12.5 Encounter for screening for malignant neoplasm of prostate (principal); E55.9 Vitamin D deficiency, unspecified; I10 Essential (primary) hypertension
CPT/HCPCS: 36415; 80053; 82306; 84153; G0103